=== PATIENT | female | born 1930 | race Caucasian/White ===

== ENCOUNTER 2020-10-23 14:12 | Inpatient (IN) | payer OTHER, MEDICAID, SELFPAY ==
[~2020-10-23] VITALS: Ht 152.4 cm; Wt 39.9 kg
[2020-10-23 15:14] VITALS: BP_SYST 102
[2020-10-23 15:37] VITALS: BP_SYST 104
[2020-10-23] MEDS ORDERED: DOCU-144 PO (16:08)
[2020-10-23] MEDS ORDERED: BISA5TAB10 RC ×2 (16:08→16:20)
[2020-10-23] MEDS ORDERED: DONE10TA44 PO (16:09)
[2020-10-23] MEDS ORDERED: CHOL4000 (16:20)
[2020-10-23] MEDS ORDERED: MEGE20TA6 PO (16:20)
[2020-10-23] MEDS ORDERED: LACT10SO6 PO (16:20)
[2020-10-23] MEDS ORDERED: ACET325T PO (16:20)
[2020-10-23] MEDS ORDERED: MOM PO (16:20)
[2020-10-23] MEDS ORDERED: ESCI10TA PO (16:20)
[2020-10-23] MEDS ORDERED: GUAI100S14 PO (16:20)
[2020-10-23] MEDS ORDERED: OMEP20CA15 PO (16:20)
[2020-10-23] MEDS ORDERED: MELO15TA13 PO (16:20)
[2020-10-23] MEDS ORDERED: MEMA10TA PO (16:20)
[2020-10-23 18:29] LABS: ALANINE AMINOTRANSFERASE 18 U/L (12-78); ALBUMIN 3.9 g/dL (3.4-4.8); ANION GAP 7 (5-15); ASPARTATE AMINOTRANSFERASE 8 U/L (10-37); CALCIUM 9.1 mg/dL (8.4-11.0); CHLORIDE 105 mmol/L (98-107); CREATININE 0.88 mg/dL (0.55-1.30); GLUCOSE 80 mg/dL (70-99); POTASSIUM 4.1 mmol/L (3.5-5.1); SODIUM SERUM 139 mmol/L (136-145); TOTAL BILIRUBIN 0.5 mg/dL (0.0-1.0); UREA NITROGEN, BLOOD 2 mg/dL (8-21)
[2020-10-23] MEDS: D5/0.45 NS 1,000 ML IV SCH (18:38)
[2020-10-23 18:43] LABS: BASOPHILS # (AUTO) 0.1 K/uL (0.0-0.2); BASOPHILS % (AUTO) 2.1 % (0.0-2.0); EOSINOPHILS # (AUTO) 0.6 K/uL (0.0-0.4); EOSINOPHILS % (AUTO) 8.8 % (0.0-4.0); HEMATOCRIT 32.3 % (36-48); HEMOGLOBIN 10.9 g/dL (12.0-16.0); LYMPHOCYTES # (AUTO) 1.5 K/uL (1.0-5.5); LYMPHOCYTES % (AUTO) 22.7 % (20.5-51.5); MEAN CORPUSCULAR HEMOGLOBIN 33 pg (27-31); MEAN CORPUSCULAR HGB CONC 34 % (32-36); MEAN CORPUSCULAR VOLUME 97 fL (79.0-98.0); MONOCYTES # (AUTO) 0.5 K/uL (0.0-1.0); MONOCYTES % (AUTO) 7.4 % (1.7-9.3); NEUTROPHILS # (AUTO) 3.8 K/uL (1.8-7.7); PLATELET COUNT (AUTO) 239 K/uL (130-430); RED BLOOD CELL COUNT(AUTO) 3.34 MIL/uL (4.2-6.2); RED CELL DISTRIBUTION WIDTH 13.4 % (9.0-15.0); WHITE BLOOD COUNT (AUTO) 6.5 K/uL (4.8-10.8)
[2020-10-23] MEDS ORDERED: ACETAMINOPHEN 325 MG TABLET PO PRN (19:30)
[2020-10-23] MEDS ORDERED: MILK OF MAGNESIA 30 ML UDC PO PRN (19:30)
[2020-10-23 20:00] VITALS: BP_SYST 114
[2020-10-23] MEDS: MEMANTINE HCL 5 MG TABLET PO SCH (21:00)
[2020-10-23] MEDS: MEGESTROL ACETATE 40 MG TABLET PO SCH (21:00)
[2020-10-23] MEDS: LACTULOSE 20 GM/30 ML UDC PO SCH (21:00)
[2020-10-23] MEDS: DONEPEZIL HCL 5 MG TABLET (ARICEPT) PO SCH (21:00)
[2020-10-23] MEDS: CITALOPRAM HYDROBROMIDE 20 MG TABLET PO SCH (21:00)
[2020-10-23] MEDS: cefTRIAXone 1 GM in D5W 50 ML IV SCH (21:15)
[2020-10-24] VITALS: BP_SYST 114
[2020-10-24 00:51] LABS: BILIRUBIN,URINE NEGATIVE (NEGATIVE); CLARITY/URINE CLOUDY (CLEAR); COLOR,URINE YELLOW (YELLOW); GLUCOSE,URINE NEGATIVE (NEGATIVE); KETONES,URINE NEGATIVE (NEGATIVE); LEUKOCYTE ESTERASE ,URINE 3+ (NEGATIVE); NITRITE, URINE POSITIVE (NEGATIVE); PROTEIN URINE NEGATIVE (NEGATIVE)
[2020-10-24 00:56] LABS: BLOOD, URINE TRACE (NEGATIVE)
[2020-10-24 01:33] LABS: BACTERIA,URINE MANY /HPF (None Seen); WBC,URINE 20-50 /HPF (0-3)
[2020-10-24 06:44] LABS: BASOPHILS # (AUTO) 0.1 K/uL (0.0-0.2); EOSINOPHILS # (AUTO) 0.7 K/uL (0.0-0.4); EOSINOPHILS % (AUTO) 9.7 % (0.0-4.0); HEMATOCRIT 31.7 % (36-48); HEMOGLOBIN 10.7 g/dL (12.0-16.0); LYMPHOCYTES # (AUTO) 1.5 K/uL (1.0-5.5); LYMPHOCYTES % (AUTO) 21.4 % (20.5-51.5); MEAN CORPUSCULAR HEMOGLOBIN 33 pg (27-31); MEAN CORPUSCULAR HGB CONC 34 % (32-36); MEAN CORPUSCULAR VOLUME 97 fL (79.0-98.0); MONOCYTES # (AUTO) 0.5 K/uL (0.0-1.0); MONOCYTES % (AUTO) 7.7 % (1.7-9.3); NEUTROPHILS # (AUTO) 4.2 K/uL (1.8-7.7); NEUTROPHILS % (AUTO) 60.2 % (40.0-70.0); PLATELET COUNT (AUTO) 228 K/uL (130-430); RED BLOOD CELL COUNT(AUTO) 3.27 MIL/uL (4.2-6.2); RED CELL DISTRIBUTION WIDTH 13.4 % (9.0-15.0); RETICULOCYTE COUNT 1.1 % (0.5-1.5); WHITE BLOOD COUNT (AUTO) 7.1 K/uL (4.8-10.8)
[2020-10-24 07:10] LABS: ALANINE AMINOTRANSFERASE 12 U/L (12-78); ALBUMIN 3.7 g/dL (3.4-4.8); ANION GAP 7 (5-15); ASPARTATE AMINOTRANSFERASE 6 U/L (10-37); CALCIUM 9.1 mg/dL (8.4-11.0); CHLORIDE 106 mmol/L (98-107); CREATININE 0.82 mg/dL (0.55-1.30); GLUCOSE 94 mg/dL (70-99); POTASSIUM 3.9 mmol/L (3.5-5.1); SODIUM SERUM 141 mmol/L (136-145); TOTAL BILIRUBIN 0.4 mg/dL (0.0-1.0); UREA NITROGEN, BLOOD 6 mg/dL (8-21)
[2020-10-24 07:47] LABS: TOTAL IRON BIND. CAPACITY 157 ug/dL (250-450)
[2020-10-24 08:27] LABS: INR 1.1 (0.8-1.2); PROTHROMBIN TIME 10.8 SECS (9.5-12.5)
[2020-10-24 08:30] VITALS: BP_SYST 123
[2020-10-24] MEDS: LACTULOSE 20 GM/30 ML UDC PO SCH ×3 (09:00→21:00)
[2020-10-24] MEDS: MELOXICAM 7.5 MG TABLET PO SCH (09:00)
[2020-10-24] MEDS: MEMANTINE HCL 5 MG TABLET PO SCH ×2 (09:00→21:00)
[2020-10-24] MEDS: CHOLECALCIFEROL (VITAMIN D3) 2,000 UNIT TABLET PO SCH (09:00)
[2020-10-24] MEDS: DOCUSATE SODIUM 100 MG CAPSULE PO SCH (09:00)
[2020-10-24] MEDS: MEGESTROL ACETATE 40 MG TABLET PO SCH ×2 (09:00→21:00)
[2020-10-24] MEDS: PANTOPRAZOLE SODIUM 40 MG TAB PO SCH (09:00)
[2020-10-24] MEDS: D5/0.45 NS 1,000 ML IV SCH ×2 (09:59→20:54)
[2020-10-24 11:48] VITALS: BP_SYST 111
[2020-10-24 16:00] VITALS: BP_SYST 102
[2020-10-24 20:00] VITALS: BP_SYST 99
[2020-10-24] MEDS: cefTRIAXone 1 GM in D5W 50 ML IV SCH (20:54)
[2020-10-24] MEDS: CITALOPRAM HYDROBROMIDE 20 MG TABLET PO SCH (21:00)
[2020-10-24] MEDS: DONEPEZIL HCL 5 MG TABLET (ARICEPT) PO SCH (21:00)
[2020-10-25 00:29] VITALS: BP_SYST 92
[2020-10-25 07:06] LABS: FOLATE (FOLIC ACID) 10.9 ng/mL (>3.0)
[2020-10-25 08:05] VITALS: BP_SYST 100
[2020-10-25] MEDS: MELOXICAM 7.5 MG TABLET PO SCH (09:00)
[2020-10-25] MEDS: CHOLECALCIFEROL (VITAMIN D3) 2,000 UNIT TABLET PO SCH (09:00)
[2020-10-25] MEDS: PANTOPRAZOLE SODIUM 40 MG TAB PO SCH (09:00)
[2020-10-25] MEDS: LACTULOSE 20 GM/30 ML UDC PO SCH ×3 (09:00→21:00)
[2020-10-25] MEDS: MEGESTROL ACETATE 40 MG TABLET PO SCH ×2 (09:00→21:00)
[2020-10-25] MEDS: DOCUSATE SODIUM 100 MG CAPSULE PO SCH (09:00)
[2020-10-25] MEDS: MEMANTINE HCL 5 MG TABLET PO SCH ×2 (09:00→21:00)
[2020-10-25 11:32] VITALS: BP_SYST 108
[2020-10-25] MEDS: D5/0.45 NS 1,000 ML IV SCH ×2 (12:19→22:30)
[2020-10-25 15:19] VITALS: BP_SYST 131
[2020-10-25 20:15] VITALS: BP_SYST 106
[2020-10-25] MEDS: DONEPEZIL HCL 5 MG TABLET (ARICEPT) PO SCH (21:00)
[2020-10-25] MEDS: CITALOPRAM HYDROBROMIDE 20 MG TABLET PO SCH (21:00)
[2020-10-25] MEDS: cefTRIAXone 1 GM in D5W 50 ML IV SCH (22:25)
[2020-10-26 00:54] VITALS: BP_SYST 115
[2020-10-26 06:25] LABS: BASOPHILS # (AUTO) 0.1 K/uL (0.0-0.2); EOSINOPHILS # (AUTO) 0.6 K/uL (0.0-0.4); EOSINOPHILS % (AUTO) 8.4 % (0.0-4.0); HEMATOCRIT 29.4 % (36-48); HEMOGLOBIN 10.1 g/dL (12.0-16.0); LYMPHOCYTES # (AUTO) 1.5 K/uL (1.0-5.5); LYMPHOCYTES % (AUTO) 19.4 % (20.5-51.5); MEAN CORPUSCULAR HEMOGLOBIN 33 pg (27-31); MEAN CORPUSCULAR HGB CONC 34 % (32-36); MEAN CORPUSCULAR VOLUME 98 fL (79.0-98.0); MONOCYTES # (AUTO) 0.7 K/uL (0.0-1.0); MONOCYTES % (AUTO) 9.2 % (1.7-9.3); NEUTROPHILS # (AUTO) 4.8 K/uL (1.8-7.7); PLATELET COUNT (AUTO) 229 K/uL (130-430); RED BLOOD CELL COUNT(AUTO) 3.01 MIL/uL (4.2-6.2); RED CELL DISTRIBUTION WIDTH 13.3 % (9.0-15.0); WHITE BLOOD COUNT (AUTO) 7.7 K/uL (4.8-10.8)
[2020-10-26] MEDS ORDERED: SIMETHICONE 40 MG/0.6 ML ML ONE (07:25)
[2020-10-26] MEDS ORDERED: MEPERIDINE 100 MG INJ. 100 MG/ML VIAL ONE (07:26)
[2020-10-26] MEDS ORDERED: MIDAZOLAM HCL 5 MG/5 ML VIAL ONE (07:26)
[2020-10-26 08:00] VITALS: BP_SYST 109
[2020-10-26] MEDS: LACTULOSE 20 GM/30 ML UDC PO SCH ×4 (09:00→21:12)
[2020-10-26] MEDS: MELOXICAM 7.5 MG TABLET PO SCH (09:49)
[2020-10-26] MEDS: MEGESTROL ACETATE 40 MG TABLET PO SCH ×2 (09:49→21:12)
[2020-10-26] MEDS: MEMANTINE HCL 5 MG TABLET PO SCH ×2 (09:50→21:11)
[2020-10-26] MEDS: PANTOPRAZOLE SODIUM 40 MG TAB PO SCH (09:50)
[2020-10-26] MEDS: DOCUSATE SODIUM 100 MG CAPSULE PO SCH (09:50)
[2020-10-26] MEDS: CHOLECALCIFEROL (VITAMIN D3) 2,000 UNIT TABLET PO SCH (09:50)
[2020-10-26 11:27] VITALS: BP_SYST 139
[2020-10-26] MEDS: D5/0.45 NS 1,000 ML IV SCH (15:05)
[2020-10-26 15:31] VITALS: BP_SYST 96
[2020-10-26 21:00] VITALS: BP_SYST 117
[2020-10-26] MEDS: cefTRIAXone 1 GM in D5W 50 ML IV SCH (21:11)
[2020-10-26] MEDS: CITALOPRAM HYDROBROMIDE 20 MG TABLET PO SCH (21:12)
[2020-10-26] MEDS: MIRTAZAPINE 15 MG TABLET PO SCH (21:12)
[2020-10-26] MEDS: DONEPEZIL HCL 5 MG TABLET (ARICEPT) PO SCH (21:12)
[2020-10-27 00:09] VITALS: BP_SYST 137
[2020-10-27] MEDS: D5/0.45 NS 1,000 ML IV SCH ×2 (04:54→15:20)
[2020-10-27 05:59] LABS: BASOPHILS # (AUTO) 0.1 K/uL (0.0-0.2); BASOPHILS % (AUTO) 0.8 % (0.0-2.0); EOSINOPHILS # (AUTO) 0.3 K/uL (0.0-0.4); EOSINOPHILS % (AUTO) 5.3 % (0.0-4.0); HEMOGLOBIN 10.4 g/dL (12.0-16.0); LYMPHOCYTES # (AUTO) 1.3 K/uL (1.0-5.5); LYMPHOCYTES % (AUTO) 21.5 % (20.5-51.5); MEAN CORPUSCULAR HEMOGLOBIN 33 pg (27-31); MEAN CORPUSCULAR HGB CONC 34 % (32-36); MEAN CORPUSCULAR VOLUME 97 fL (79.0-98.0); MONOCYTES # (AUTO) 0.5 K/uL (0.0-1.0); MONOCYTES % (AUTO) 8.4 % (1.7-9.3); PLATELET COUNT (AUTO) 199 K/uL (130-430); RED BLOOD CELL COUNT(AUTO) 3.18 MIL/uL (4.2-6.2); RED CELL DISTRIBUTION WIDTH 13.7 % (9.0-15.0); WHITE BLOOD COUNT (AUTO) 6.2 K/uL (4.8-10.8)
[2020-10-27 06:29] LABS: ANION GAP 10 (5-15); CALCIUM 9.1 mg/dL (8.4-11.0); CHLORIDE 111 mmol/L (98-107); CREATININE 0.95 mg/dL (0.55-1.30); GLUCOSE 93 mg/dL (70-99); POTASSIUM 4.5 mmol/L (3.5-5.1); SODIUM SERUM 145 mmol/L (136-145); UREA NITROGEN, BLOOD 5 mg/dL (8-21)
[2020-10-27 08:00] VITALS: BP_SYST 112
[2020-10-27] MEDS: MEGESTROL ACETATE 40 MG TABLET PO SCH ×2 (09:38→20:49)
[2020-10-27] MEDS: LACTULOSE 20 GM/30 ML UDC PO SCH ×3 (09:38→20:49)
[2020-10-27] MEDS: DOCUSATE SODIUM 100 MG CAPSULE PO SCH (09:38)
[2020-10-27] MEDS: PANTOPRAZOLE SODIUM 40 MG TAB PO SCH (09:38)
[2020-10-27] MEDS: MEMANTINE HCL 5 MG TABLET PO SCH ×2 (09:38→20:47)
[2020-10-27] MEDS: MELOXICAM 7.5 MG TABLET PO SCH (09:38)
[2020-10-27] MEDS: CHOLECALCIFEROL (VITAMIN D3) 2,000 UNIT TABLET PO SCH (09:38)
[2020-10-27 12:48] VITALS: BP_SYST 116
[2020-10-27 16:43] VITALS: BP_SYST 111
[2020-10-27 20:45] VITALS: BP_SYST 113
[2020-10-27] MEDS: MIRTAZAPINE 15 MG TABLET PO SCH (20:48)
[2020-10-27] MEDS: CITALOPRAM HYDROBROMIDE 20 MG TABLET PO SCH (20:48)
[2020-10-27] MEDS: DONEPEZIL HCL 5 MG TABLET (ARICEPT) PO SCH (20:49)
[2020-10-27] MEDS: cefTRIAXone 1 GM in D5W 50 ML IV SCH (20:50)
[2020-10-28 01:04] VITALS: BP_SYST 124
[2020-10-28] MEDS ORDERED: VANCOMYCIN HCL 750 MG in NS 250 ML IV ONE (02:30)
[2020-10-28] MEDS ORDERED: VANCOMYCIN HCL 1000 MG/VIAL IV ONE (04:13)
[2020-10-28 07:15] LABS: BASOPHILS # (AUTO) 0.1 K/uL (0.0-0.2); BASOPHILS % (AUTO) 0.7 % (0.0-2.0); EOSINOPHILS # (AUTO) 0.4 K/uL (0.0-0.4); EOSINOPHILS % (AUTO) 5.5 % (0.0-4.0); HEMATOCRIT 32.4 % (36-48); HEMOGLOBIN 10.8 g/dL (12.0-16.0); LYMPHOCYTES # (AUTO) 1.8 K/uL (1.0-5.5); LYMPHOCYTES % (AUTO) 22.5 % (20.5-51.5); MEAN CORPUSCULAR HEMOGLOBIN 33 pg (27-31); MEAN CORPUSCULAR HGB CONC 33 % (32-36); MEAN CORPUSCULAR VOLUME 99 fL (79.0-98.0); MONOCYTES # (AUTO) 0.7 K/uL (0.0-1.0); MONOCYTES % (AUTO) 8.4 % (1.7-9.3); NEUTROPHILS # (AUTO) 4.9 K/uL (1.8-7.7); NEUTROPHILS % (AUTO) 62.9 % (40.0-70.0); PLATELET COUNT (AUTO) 105 K/uL (130-430); RED BLOOD CELL COUNT(AUTO) 3.29 MIL/uL (4.2-6.2); RED CELL DISTRIBUTION WIDTH 13.7 % (9.0-15.0); WHITE BLOOD COUNT (AUTO) 7.8 K/uL (4.8-10.8)
[2020-10-28 08:00] VITALS: BP_SYST 126
[2020-10-28] MEDS: CHOLECALCIFEROL (VITAMIN D3) 2,000 UNIT TABLET PO SCH (08:29)
[2020-10-28] MEDS: LACTULOSE 20 GM/30 ML UDC PO SCH ×2 (08:29→15:00)
[2020-10-28] MEDS: MEGESTROL ACETATE 40 MG TABLET PO SCH (08:29)
[2020-10-28] MEDS: DOCUSATE SODIUM 100 MG CAPSULE PO SCH (08:29)
[2020-10-28] MEDS: MEMANTINE HCL 5 MG TABLET PO SCH (08:29)
[2020-10-28] MEDS: MELOXICAM 7.5 MG TABLET PO SCH (08:29)
[2020-10-28] MEDS: D5/0.45 NS 1,000 ML IV SCH (08:30)
[2020-10-28] MEDS: PANTOPRAZOLE SODIUM 40 MG TAB PO SCH (08:30)
[2020-10-28] MEDS ORDERED: ENOXAPARIN SODIUM 30 MG/0.3 ML SYRINGE SUBCUT ONE (10:15)
[2020-10-28 12:00] VITALS: BP_SYST 116; BP_SYST 130
[2020-10-28 15:44] VITALS: BP_SYST 130
[2020-10-28 16:00] VITALS: BP_SYST 119
[2020-10-29] MEDS ORDERED: VANCOMYCIN HCL 750 MG in NS 250 ML IV SCH (06:00)
[2020-10-29] MEDS ORDERED: ENOXAPARIN SODIUM 30 MG/0.3 ML SYRINGE SUBCUT SCH (09:00)
[2020-10-29] MEDS ORDERED: VANCOMYCIN HCL 500 MG in NS 100 ML IV SCH (17:00)
== END 2020-10-28 16:40 | DRG 689 ==
LOC: SMU 14:12 → STU 17:45
PROVIDERS: ADMIT Internal Medicine; ATTEND Internal Medicine
DX: N39.0 Urinary tract infection, site not specified (principal); E43 Unspecified severe protein-calorie malnutrition; Z68.1 Body mass index [BMI] 19.9 or less, adult; R62.7 Adult failure to thrive; D64.9 Anemia, unspecified; Z20.822 Contact with and (suspected) exposure to COVID-19; M62.50 Muscle wasting and atrophy, not elsewhere classified, unspecified site; R13.10 Dysphagia, unspecified; F03.90 Unspecified dementia, unspecified severity, without behavioral disturbance, psychotic disturbance, mood disturbance, and anxiety; Z79.899 Other long term (current) drug therapy; Z88.0 Allergy status to penicillin
CPT/HCPCS: 36415; 80048; 80053; 81000-TC; 82607; 82728; 82746; 83540-TC; 83550-TC; 84134; 85025; 85044-TC; 85610-TC; 85730-TC; 87081; 87086; 87186-TC; 92610-GN; 93970; G0378; J0696; J1650; J2175; J2250; J3370; J7030; J7050; J7060